=== PATIENT | female | born 1975 | race Caucasian/White ===

== ENCOUNTER 2024-08-10 08:50 | Emergency (ER) | payer OTHER ==
[2024-08-10] MEDS: diphenhydrAMINE 50 MG/ML 1 ML VIAL IVP STA (09:24)
[2024-08-10] MEDS: methylPREDNISolone SOD SUCCI 125 MG/2 ML VIAL IV STA (09:27)
--- NOTE | 2024-08-10 09:31 | ED ---
Skin/Abscess/FB HPI - General Chief complaint: Skin/Abscess/Foreign Body Stated complaint: Allergic reaction Time Seen by Provider: 08/10/24 08:58 Source: patient, RN notes reviewed Mode of arrival: ambulatory Limitations: no limitations - History of Present Illness Initial comments: 49-year-old female presents to the emergency department complaint of allergic reaction. She states that she used a new facial cream last night states that she woke up with swollen right face states that it is very painful, burning sensation. Patient states that she feels like she has some shortness of breath. Patient states that she never had a reaction like this in the past she does have known allergies to iodine and Bactrim. - Related Data Previous Rx's Medication Instructions Recorded Ibuprofen [Motrin] 800 mg PO Q8HR PRN #30 tab 12/06/22 Triamcinolone 0.1% Cream [Kenalog 1 applicatio TOPICAL BID #15 gram 08/10/24 0.1% Cream] methylPREDNISolone Dose Pack 4 mg PO DIRECTED #1 packet 08/10/24 [Medrol Dose Pack] Allergies Allergy/AdvReac Type Severity Reaction Status Date / Time iodine Allergy Unknown Verified 08/10/24 11:14 sulfamethoxazole Allergy Rash/Hives Verified 08/10/24 11:14 [From Bactrim] trimethoprim [From Bactrim] Allergy Rash/Hives Verified 08/10/24 11:14 Review of Systems ROS Statement: Those systems with pertinent positive or pertinent negative responses have been documented in the HPI. ROS Other: All systems not noted in ROS Statement are negative. Past Medical History Past Medical History: No Reported History History of Any Multi-Drug Resistant Organisms: None Reported Past Surgical History: No Surgical Hx Reported Past Psychological History: Depression Smoking Status: Never smoker Past Alcohol Use History: Rare Past Drug Use History: None Reported General Exam Limitations: no limitations General appearance: alert, in no apparent distress Head exam: Present: atraumatic, normocephalic, normal inspection Eye exam: Present: normal appearance, PERRL, EOMI. Absent: scleral icterus, conjunctival injection, periorbital swelling ENT exam: Present: normal exam, normal oropharynx, mucous membranes moist Neck exam: Present: normal inspection. Absent: tenderness, meningismus, lymphadenopathy Respiratory exam: Present: normal lung sounds bilaterally. Absent: respiratory distress, wheezes, rales, rhonchi, stridor Cardiovascular Exam: Present: regular rate, normal rhythm, normal heart sounds. Absent: systolic murmur, diastolic murmur, rubs, gallop, clicks Skin exam: Present: warm, dry, intact, rash (Swelling, erythematous changes throughout the face). Absent: normal color Course Vital Signs 08/10/24 08/10/24 08/10/24 08:55 09:37 11:41 Temperature 98 F 97.7 F 102.4 F H Pulse Rate 77 68 105 H Respiratory 18 26 H 18 Rate Blood Pressure 136/78 140/101 113/69 O2 Sat by Pulse 99 100 96 Oximetry Medical Decision Making - Medical Decision Making Was pt. sent in by a medical professional or institution (DOUG Salas, FINANCIAL SALES ADVISOR, urgent care, hospital, or long-term...) When possible be specific @ -No Did you speak to anyone other than the patient for history (EMS, parent, family, police, friend...)? What history was obtained from this source @ -No Did you review nursing and triage notes (agree or disagree)? Why? @ -I reviewed and agree with nursing and triage notes Were old charts reviewed (outside hosp., previous admission, EMS record, old EKG, old radiological studies, urgent care reports/EKG's, long-term records)? Report findings @ -No old charts were reviewed Differential Diagnosis (chest pain, altered mental status, abdominal pain women, abdominal pain men, vaginal bleeding, weakness, fever, dyspnea, syncope, headache, dizziness, GI bleed, back pain, seizure, CVA, palpatations, mental health, musculoskeletal)? @ -[Contact dermatitis, allergic reaction EKG interpreted by me (3pts min.). @ -None X-rays interpreted by me (1pt min.). @ -None done CT interpreted by me (1pt min.). @ -None done U/S interpreted by me (1pt. min.). @ -None done What testing was considered but not performed or refused? (CT, X-rays, U/S, labs)? Why? @ -None What meds were considered but not given or refused? Why? @ -None Did you discuss the management of the patient with other professionals (pr ofessionals i.e. DOUG Salas, FINANCIAL SALES ADVISOR, lab, RT, psych nurse, hospital social worker, wastewater treatment supervisor, teacher, field crop technical officer, director of casework services)? Give summary @ -No Was smoking cessation discussed for >3mins.? @ -No Was critical care preformed (if so, how long)? @ -No Were there social determinants of health that impacted care today? How? (Homelessness, low income, unemployed, alcoholism, drug addiction, transportation, low edu. Level, literacy, decrease access to med. care, shelter, rehab)? @ -No Was there de-escalation of care discussed even if they declined (Discuss DNR or withdrawal of care, Hospice)? DNR status @ -No What co-morbidities impacted this encounter? (DM, HTN, Smoking, COPD, CAD, Cancer, CVA, ARF, Chemo, Hep., AIDS, mental health diagnosis, sleep apnea, morbid obesity)? @ -None Was patient admitted / discharged? Hospital course, mention meds given and route, prescriptions, significant lab abnormalities, going to OR and other pertinent info. @ -Discharge patient presented for facial rash, burning, shortness of breath. Patient had contact dermatitis, allergic reaction from facial cream. Patient was given Solu-Medrol, Benadryl greatly improved. She did use some Benadryl cream that has helped. She will continue Benadryl and steroid cream return for as discussed. Undiagnosed new problem with uncertain prognosis? @ -No Drug Therapy requiring intensive monitoring for toxicity (Heparin, Nitro, Insul in, Cardizem)? @ -No Were any procedures done? @ -No Diagnosis/symptom? @ -Contact dermatitis, allergic reaction Acute, or Chronic, or Acute on Chronic? @ -Acute Uncomplicated (without systemic symptoms) or Complicated (systemic symptoms)? @ -Uncomplicated Side effects of treatment? @ -No Exacerbation, Progression, or Severe Exacerbation? @ -No Poses a threat to life or bodily function? How? (Chest pain, [place], [place], pneumonia, PE, COPD, DKA, ARF, appy, cholecystitis, CVA, Diverticulitis, Homicidal, Suicidal, threat to staff... and all critical care pts) @ -No Disposition Clinical Impression: Contact dermatitis, Allergic reaction Disposition: HOME SELF-CARE Condition: Stable Instructions (If sedation given, give patient instructions): Contact Dermatitis (ED) Additional Instructions: Please return to the Emergency Department if symptoms worsen or any other concerns. Prescriptions: Triamcinolone 0.1% Cream [Kenalog 0.1% Cream] 1 applicatio TOPICAL BID #15 gram methylPREDNISolone Dose Pack [Medrol Dose Pack] 4 mg PO DIRECTED #1 packet Is patient prescribed a controlled substance at d/c from ED?: No Referrals: Luz Mujica DO [Primary Care Provider] - 1-2 days Time of Disposition: 11:51
[2024-08-10] MEDS: diphenhydrAMINE 2% CREAM 28.4 GM TUBE TOPICAL STA (09:41)
[2024-08-10] MEDS: SODIUM CHLORIDE 0.9% 1,000 ML IV ONE (09:51)
[2024-08-10 11:50] VITALS: RESP 20; TEMP 98
[2024-08-10 12:21] VITALS: BP 131/79; PULSE 71
== END 2024-08-10 12:22 | disposition home or self-care (01) ==
LOC: EC 08:50
DX: L25.9 Unspecified contact dermatitis, unspecified cause (principal); Z88.1 Allergy status to other antibiotic agents; Z88.2 Allergy status to sulfonamides; Z88.8 Allergy status to other drugs, medicaments and biological substances; Z91.041 Radiographic dye allergy status
CPT/HCPCS: 99283; 96374; 96375; 96361; J1200; J2919

== ENCOUNTER 2024-09-13 14:59 | Emergency (ER) | payer OTHER ==
--- NOTE | 2024-09-13 15:31 | ED ---
General Adult HPI - General Stated complaint: THROAT SWELLING Time Seen by Provider: 09/13/24 15:10 Source: patient, RN notes reviewed - History of Present Illness Initial comments: This is a 49-year-old female presenting to the emergency department with referral from urgent care for complaint of sore throat and difficulty swallowing that has been worsening over the past 3-4 days. states that when she woke up this morning she began to experience a severe sore throat that was associated with pain with swallowing. Patient has been experiencing fevers, chills, cough, rhinorrhea. She denies shortness of breath, difficulty breathing, chest pain, heart palpitations, dizziness lightheadedness. Patient states that she has a hi story of a peritonsillar abscess that had to be drained previously. - Related Data Previous Rx's Medication Instructions Recorded Ibuprofen [Motrin] 800 mg PO Q8HR PRN #30 tab 12/06/22 Triamcinolone 0.1% Cream [Kenalog 1 applicatio TOPICAL BID #15 gram 08/10/24 0.1% Cream] methylPREDNISolone Dose Pack 4 mg PO DIRECTED #1 packet 08/10/24 [Medrol Dose Pack] Nirmatrelvir/Ritonavir [Paxlovid 1 each PO DIRECTED #1 each 09/13/24 150-100 mg Dose Pack] predniSONE 50 mg PO DAILY #5 tab 09/13/24 Allergies Allergy/AdvReac Type Severity Reaction Status Date / Time iodine Allergy Unknown Verified 09/13/24 15:33 sulfamethoxazole Allergy Rash/Hives Verified 09/13/24 15:33 [From Bactrim] trimethoprim [From Bactrim] Allergy Rash/Hives Verified 09/13/24 15:33 Review of Systems ROS Statement: Those systems with pertinent positive or pertinent negative responses have been documented in the HPI. ROS Other: All systems not noted in ROS Statement are negative. Past Medical History Past Medical History: No Reported History History of Any Multi-Drug Resistant Organisms: None Reported Past Surgical History: No Surgical Hx Reported Past Psychological History: Depression Smoking Status: Never smoker Past Alcohol Use History: Rare Past Drug Use History: None Reported General Exam - General Exam Comments Initial Comments: Visual Physical Exam Vital signs reviewed General: Well-appearing, nontoxic, no acute distress. Head: Normocephalic, atraumatic Eyes: PERRLA, EOMI ENT: Airway patent Chest: Nonlabored breathing Skin: No visual rash, normal skin tone Neuro: Alert and oriented 3 Musculoskeletal: No gross abnormalities General appearance: alert, in no apparent distress Eye exam: Present: normal appearance, PERRL, EOMI. Absent: scleral icterus, conjunctival injection, periorbital swelling Expanded Throat exam: tonsillar erythema (bilateral), tonsillomegaly (bilateral, more severe left) Neck exam: Present: normal inspection, lymphadenopathy (anterior cervical, tonsillar). Absent: tenderness, meningismus Respiratory exam: Present: normal lung sounds bilaterally. Absent: respiratory distress, wheezes, rales, rhonchi, stridor Cardiovascular Exam: Present: regular rate, normal rhythm, normal heart sounds. Absent: systolic murmur, diastolic murmur, rubs, gallop, clicks GI/Abdominal exam: Present: soft, normal bowel sounds. Absent: distended, tenderness, guarding, rebound, rigid Extremities exam: Present: normal inspection, full ROM, normal capillary refill. Absent: tenderness, pedal edema, joint swelling, calf tenderness Course Vital Signs 09/13/24 09/13/24 09/13/24 15:33 15:52 16:40 Temperature 97.3 F L 99.2 F Pulse Rate 91 84 81 Respiratory 22 16 19 Rate Blood Pressure 142/73 119/89 114/79 O2 Sat by Pulse 100 100 99 Oximetry 09/13/24 16:45 Temperature 103.1 F H Pulse Rate Respiratory Rate Blood Pressure O2 Sat by Pulse Oximetry Medical Decision Making - Medical Decision Making Was pt. sent in by a medical professional or institution (, PA, APPLICATION DEVELOPMENT SPECIALIST, urgent care, hospital, or skilled nursing...) When possible be specific @ -No Did you speak to anyone other than the patient for history (EMS, parent, family, police, friend...)? What history was obtained from this source @ -No Did you review nursing and triage notes (agree or disagree)? Why? @ -I reviewed and agree with nursing and triage notes Were old charts reviewed (outside hosp., previous admission, EMS record, old EKG, old radiological studies, urgent care reports/EKG's, skilled nursing records)? Report findings @ -No old charts were reviewed Differential Diagnosis (chest pain, altered mental status, abdominal pain women, abdominal pain men, vaginal bleeding, weakness, fever, dyspnea, syncope, headache, dizziness, GI bleed, back pain, seizure, CVA, palpatations, mental health, musculoskeletal)? @ -COVID 19, RSV, influenza, pneumonia, acute bronchitis, URI, tonsillar abscess, retropharyngeal abscess, this list is not all inclusive EKG interpreted by me (3pts min.). @ -none X-rays interpreted by me (1pt min.). @ -None done CT interpreted by me (1pt min.). @ -CT soft tissue neck without contrast reveals swelling of the palatine tonsils with no evidence for peritonsillar abscess with mild emphysema changes in the lung apices U/S interpreted by me (1pt. min.). @ -None done What testing was considered but not performed or refused? (CT, X-rays, U/S, labs)? Why? @ -None What meds were considered but not given or refused? Why? @ -None Did you discuss the management of the patient with other professionals (professionals i.e. , PA, APPLICATION DEVELOPMENT SPECIALIST, lab, RT, psych nurse, licensed master social worker, clinical counselor, teacher, corporate trust officer, sample case porter)? Give summary @ -No Was smoking cessation discussed for >3mins.? @ -No Was critical care preformed (if so, how long)? @ -No Were there social determinants of health that impacted care today? How? (Homelessness, low income, unemployed, alcoholism, drug addiction, transportation, low edu. Level, literacy, decrease access to med. care, nursing home, rehab)? @ -No Was there de-escalation of care discussed even if they declined (Discuss DNR or withdrawal of care, Hospice)? DNR status @ -No What co-morbidities impacted this encounter? (DM, HTN, Smoking, COPD, CAD, Cancer, CVA, ARF, Chemo, Hep., AIDS, mental health diagnosis, sleep apnea, morbid obesity)? @ -None Was patient admitted / discharged? Hospital course, mention meds given and route, prescriptions, significant lab abnormalities, going to OR and other pertinent info. @ -Charge. 49-year-old female with sore throat and tonsillar swelling. On my evaluation the patient is noted to have pain of throat with communication. 7 to have anterior cervical and tonsillar lymphadenopathy. Patient has bilateral tonsillar erythema and enlargement with left more severe than right. There is no evidence of airway compromise. Vitals are stable. There is no stridorous breathing patient is not tripoding and no evidence of muffled voice. Patient is provided with dose of pain medications and steroids and will undergo laboratory evaluation, viral swabs, CT imaging. She is agree with this plan. On reevalu ation, patient states that steroid the pain medication have helped to alleviate some of her symptoms. Recheck of temperature reveals that she is febrile over 103. At this time patient provided with oral dose of Tylenol and Motrin. lab results unremarkable. Ct no acute process or conern for peritonsillar abscess/fluid collection. Patient has tested positive for COVID. Patient will be provided with outpatient prescription for Paxlovid and steroids with concern for tonsillar swelling. She is recommend to continue Tylenol Motrin as needed. Discussed with Dr. Morales Undiagnosed new problem with uncertain prognosis? @ -No Drug Therapy requiring intensive monitoring for toxicity (Heparin, Nitro, Insulin, Cardizem)? @ -No Were any procedures done? @ -No Diagnosis/symptom? @ -COVID19 Acute, or Chronic, or Acute on Chronic? @ -acute Uncomplicated (without systemic symptoms) or Complicated (systemic symptoms)? @ -uncomplicated Side effects of treatment? @ -No Exacerbation, Progression, or Severe Exacerbation? @ -No Poses a threat to life or bodily function? How? (Chest pain, [place], [place], pneumonia, PE, COPD, DKA, ARF, appy, cholecystitis, CVA, Diverticulitis, Homicidal, Suicidal, threat to staff... and all critical care pts) @ -No - Lab Data Result diagrams: 09/13/24 16:53 09/13/24 16:53 Lab Results 09/13/24 09/13/24 09/13/24 Range/Units 16:53 16:53 16:53 WBC 7.0 (3.8-10.6) k/uL RBC 4.48 (3.80-5.40) m/uL Hgb 13.2 (11.4-16.0) gm/dL Hct 40.2 (34.0-46.0) % MCV 89.7 (80.0-100.0) fL MCH 29.5 (25.0-35.0) pg MCHC 32.9 (31.0-37.0) g/dL RDW 13.7 (11.5-15.5) % Plt Count 319 (150-450) k/uL MPV 7.1 Neutrophils % 86 % Lymphocytes % 5 % Monocytes % 6 % Eosinophils % 1 % Basophils % 0 % Neutrophils # 6.1 (1.3-7.7) k/uL Lymphocytes # 0.4 L (1.0-4.8) k/uL Monocytes # 0.4 (0-1.0) k/uL Eosinophils # 0.1 (0-0.7) k/uL Basophils # 0.0 (0-0.2) k/uL Sodium (137-145) mmol/L Potassium (3.5-5.1) mmol/L Chloride (98-107) mmol/L Carbon Dioxide (22-30) mmol/L Anion Gap mmol/L BUN (7-17) mg/dL Creatinine (0.52-1.04) mg/dL Est GFR (CKD-EPI)AfAm (>60 ml/min/1.73 sqM) Est GFR (CKD-EPI)NonAf (>60 ml/min/1.73 sqM) Glucose (74-99) mg/dL Plasma Lactic Acid Josh (0.7-2.0) mmol/L Calcium (8.4-10.2) mg/dL Total Bilirubin (0.2-1.3) mg/dL AST (14-36) U/L ALT (4-34) U/L Alkaline Phosphatase (38-126) U/L Total Protein (6.3-8.2) g/dL Albumin (3.5-5.0) g/dL Influenza Type A (PCR) Not Detected (Not Detectd) Influenza Type B (PCR) Not Detected (Not Detectd) RSV (PCR) Not Detected (Not Detectd) SARS-CoV-2 (PCR) Detected A (Not Detectd) Group A Strep (PCR) NOT DETECTED (Not Detectd) 09/13/24 09/13/24 Range/Units 16:53 16:53 WBC (3.8-10.6) k/uL RBC (3.80-5.40) m/uL Hgb (11.4-16.0) gm/dL Hct (34.0-46.0) % MCV (80.0-100.0) fL MCH (25.0-35.0) pg MCHC (31.0-37.0) g/dL RDW (11.5-15.5) % Plt Count (150-450) k/uL MPV Neutrophils % % Lymphocytes % % Monocytes % % Eosinophils % % Basophils % % Neutrophils # (1.3-7.7) k/uL Lymphocytes # (1.0-4.8) k/uL Monocytes # (0-1.0) k/uL Eosinophils # (0-0.7) k/uL Basophils # (0-0.2) k/uL Sodium 136 L (137-145) mmol/L Potassium 3.8 (3.5-5.1) mmol/L Chloride 104 (98-107) mmol/L Carbon Dioxide 21 L (22-30) mmol/L Anion Gap 11 mmol/L BUN 11 (7-17) mg/dL Creatinine 0.62 (0.52-1.04) mg/dL Est GFR (CKD-EPI)AfAm >90 (>60 ml/min/1.73 sqM) Est GFR (CKD-EPI)NonAf >90 (>60 ml/min/1.73 sqM) Glucose 81 (74-99) mg/dL Plasma Lactic Acid Josh 1.7 (0.7-2.0) mmol/L Calcium 8.9 (8.4-10.2) mg/dL Total Bilirubin 0.4 (0.2-1.3) mg/dL AST 20 (14-36) U/L ALT 14 (4-34) U/L Alkaline Phosphatase 99 (38-126) U/L Total Protein 7.6 (6.3-8.2) g/dL Albumin 4.3 (3.5-5.0) g/dL Influenza Type A (PCR) (Not Detectd) Influenza Type B (PCR) (Not Detectd) RSV (PCR) (Not Detectd) SARS-CoV-2 (PCR) (Not Detectd) Group A Strep (PCR) (Not Detectd) Disposition Clinical Impression: COVID-19, Pharyngitis Disposition: HOME SELF-CARE Condition: Good Instructions (If sedation given, give patient instructions): COVID-19 (Coronavirus Disease 2019) (ED) Additional Instructions: Please return to the Emergency Department if symptoms worsen or any other concerns. Complete full course of antivirals as prescribed and steroids. Continue Tylenol and Motrin as needed for symptomatic relief and fevers. Increase hydration. Prescriptions: Nirmatrelvir/Ritonavir [Paxlovid 150-100 mg Dose Pack] 1 each PO DIRECTED #1 each predniSONE 50 mg PO DAILY #5 tab Is patient prescribed a controlled substance at d/c from ED?: No Referrals: Luz Mujica DO [Primary Care Provider] - 1-2 days Time of Disposition: 18:09
[2024-09-13] MEDS: DEXAMETHASONE SOD PHOSPHATE 4 MG/ML 1 ML VIAL IVP STA (16:57)
[2024-09-13] MEDS: HYDROmorphone 0.5 MG/0.5 ML SYRINGE IVP STA (16:58)
[2024-09-13 17:05] LABS: Basophils % (A) 0 %; Eosinophils # (A) 0.1 k/uL (0-0.7); Eosinophils % (A) 1 %; HCT 40.2 % (34.0-46.0); HGB 13.2 gm/dL (11.4-16.0); Lymphocytes # (A) 0.4 k/uL (1.0-4.8); Lymphocytes % (A) 5 %; MCH 29.5 pg (25.0-35.0); MCHC 32.9 g/dL (31.0-37.0); MCV 89.7 fL (80.0-100.0); Mean Platelet Volume 7.1; Monocytes # (A) 0.4 k/uL (0-1.0); Monocytes % (A) 6 %; Neutrophils # (A) 6.1 k/uL (1.3-7.7); Neutrophils % (A) 86 %; Platelet Count 319 k/uL (150-450); RBC 4.48 m/uL (3.80-5.40); RDW 13.7 % (11.5-15.5)
[2024-09-13 17:10] VITALS: BP 114/79; PULSE 81; RESP 19
[2024-09-13 17:15] LABS: ALT 14 U/L (4-34); AST 20 U/L (14-36); African American GFR (CKD) >90 (>60 ml/min/1.73 sqM); Albumin 4.3 g/dL (3.5-5.0); Alkaline Phosphatase 99 U/L (38-126); Anion Gap 11 mmol/L; Blood Urea Nitrogen 11 mg/dL (7-17); Calcium 8.9 mg/dL (8.4-10.2); Carbon Dioxide 21 mmol/L (22-30); Chloride 104 mmol/L (98-107); Glucose 81 mg/dL (74-99); Non-African American GFR(CKD) >90 (>60 ml/min/1.73 sqM); Potassium 3.8 mmol/L (3.5-5.1); Sodium 136 mmol/L (137-145); Total Bilirubin 0.4 mg/dL (0.2-1.3); Total Protein 7.6 g/dL (6.3-8.2)
[2024-09-13 17:16] VITALS: TEMP 103.1
[2024-09-13] MEDS: ACETAMINOPHEN TAB 500 MG TAB PO STA (17:21)
[2024-09-13] MEDS: IBUPROFEN 800 MG TAB PO STA (17:21)
--- NOTE | 2024-09-13 17:50 | CT ---
EXAMINATION TYPE: CT soft tissue neck wo con DATE OF EXAM: 09/13/2024 5:35 PM COMPARISON: None. CLINICAL INDICATION: Female, 49 years old with history of pain, left tonsillar swelling, hx of absces s, Pt c/o chills, sweats, earache, and sore throat. Sent from [facility] to r/o peritonsillar abscess. TECHNIQUE: Standard enhanced CT of the neck. Axial sections with coronal and sagittal reformats were obtained. Contrast used: mL of , (None if empty) Oral contrast used: (None if empty) CT DLP: 248.1 mGycm, Automated exposure control for dose reduction was used. FINDINGS: Brain: Visualized portions are grossly unremarkable. Orbits: Unremarkable Sinuses: Grossly unremarkable. Spaces of the neck: Thickening of the palatine tonsils. No organizing fluid collection. Musculoskeletal: No acute osseous pathology. Lymph nodes: Multiple nonenlarged lymph nodes are seen along both anterior chains of the neck. Vascular structures: Visualized major arteries are patent without evidence of aneurysm. Thoracic Inlet/airway: Airway is patent. The lung apices are clear. Paraseptal and centrilobular emph ysema changes. Soft tissues/Thyroid: Thyroid and remainder of the soft tissues are unremarkable. Other: none. IMPRESSION: 1. Limit evaluation without contrast. 2. Swelling of the palatine tonsils. No evidence for peritonsillar abscess. 3. Mild emphysema changes in the lung apices. [facility], , 09/13/2024 5:48 PM
== END 2024-09-13 19:00 | disposition home or self-care (01) ==
LOC: EC 14:59
DX: U07.1 COVID-19 (principal); J02.9 Acute pharyngitis, unspecified; Z91.041 Radiographic dye allergy status; Z88.2 Allergy status to sulfonamides; Z88.1 Allergy status to other antibiotic agents
CPT/HCPCS: 36415; 87651; 80053; 83605; 85025; 87636; 70490; 99284; 96374; 96375; J1100; J1171

== ENCOUNTER 2025-05-19 13:03 | Emergency (ER) | payer OTHER ==
[2025-05-19 13:07] VITALS: BP 129/78; PULSE 53; RESP 20; TEMP 97.8
--- NOTE | 2025-05-19 13:36 | ED ---
Burn/Smoke HPI - General Chief complaint: Burn/Smoke Inhalation Stated complaint: [facility]-Burn on abd Time Seen by Provider: 05/19/25 13:10 Source: patient, RN notes reviewed Mode of arrival: ambulatory Limitations: no limitations - History of Present Illness Initial comments: 50-year-old female presented to the ER for evaluation of an abdominal burn. 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 She states she reached up above her head to grab a piece of foam that was being cut by 165 degree F wire when the cup piece of foam accidentally fell and landed on her abdomen. She does report her shirt lifted as well and foam was directly on her skin for a couple of seconds. She is currently reporting a burning discomfort to area where foam landed. She denies any other injuries or complaints at this time. - Related Data Previous Rx's Medication Instructions Recorded Ibuprofen [Motrin] 800 mg PO Q8HR PRN #30 tab 12/06/22 Triamcinolone 0.1% Cream [Kenalog 1 applicatio TOPICAL BID #15 gram 08/10/24 0.1% Cream] methylPREDNISolone Dose Pack 4 mg PO DIRECTED #1 packet 08/10/24 [Medrol Dose Pack] Nirmatrelvir/Ritonavir [Paxlovid 1 each PO DIRECTED #1 each 09/13/24 150-100 mg Dose Pack] predniSONE 50 mg PO DAILY #5 tab 09/13/24 Bacitracin/Polymyx Oint 1 applic TOPICAL TID #10 gm 05/19/25 [Polysporin Oint] Allergies Allergy/AdvReac Type Severity Reaction Status Date / Time iodine Allergy Unknown Verified 05/19/25 13:07 sulfamethoxazole Allergy Rash/Hives Verified 05/19/25 13:07 [From Bactrim] trimethoprim [From Bactrim] Allergy Rash/Hives Verified 05/19/25 13:07 Review of Systems ROS Statement: Those systems with pertinent positive or pertinent negative responses have been documented in the HPI. ROS Other: All systems not noted in ROS Statement are negative. Past Medical History Past Medical History: No Reported History History of Any Multi-Drug Resistant Organisms: None Reported Past Surgical History: No Surgical Hx Reported Additional Past Surgical History / Comment(s): D&C Past Psychological History: Depression Smoking Status: Never smoker Past Alcohol Use History: Rare Past Drug Use History: None Reported General Exam Limitations: no limitations General appearance: alert, in no apparent distress Respiratory exam: Present: normal lung sounds bilaterally. Absent: respiratory distress, wheezes, rales, rhonchi, stridor Cardiovascular Exam: Present: regular rate, normal rhythm, normal heart sounds. Absent: systolic murmur, diastolic murmur, rubs, gallop, clicks GI/Abdominal exam: Present: soft, normal bowel sounds. Absent: distended, tenderness, guarding, rebound, rigid Neurological exam: Present: alert, oriented X3, CN II-XII intact Skin exam: Present: warm, dry, intact, normal color, other (There is no erythema, blistering or skin abnormality noted to abdomen). Absent: rash Course Vital Signs 05/19/25 13:04 Temperature 97.8 F Pulse Rate 53 L Respiratory 20 Rate Blood Pressure 129/78 O2 Sat by Pulse 100 Oximetry Medical Decision Making - Medical Decision Making Was pt. sent in by a medical professional or institution (, PA, MASTER PLUMBER, urgent care, hospital, or [place] [facility] facility...) When possible be specific @ -No Did you speak to anyone other than the patient for history (EMS, parent, family, police, friend...)? What history was obtained from this source @ -No Did you review nursing and triage notes (agree or disagree)? Why? @ -I reviewed and agree with nursing and triage notes Were old charts reviewed (outside hosp., previous admission, EMS record, old EKG, old radiological studies, urgent care reports/EKG's, [place] [facility] facility records)? Report findings @ -No old charts were reviewed Differential Diagnosis (chest pain, altered mental status, abdominal pain women, abdominal pain men, vaginal bleeding, weakness, fever, dyspnea, syncope, headache, dizziness, GI bleed, back pain, seizure, CVA, palpatations, mental health, musculoskeletal)? @ -Burn, shingles, cellulitis... This list is not meant to be all-inclusive EKG interpreted by me (3pts min.). @ -None done X-rays interpreted by me (1pt min.). @ -None done CT interpreted by me (1pt min.). @ -None done U/S interpreted by me (1pt. min.). @ -None done What testing was considered but not performed or refused? (CT, X-rays, U/S, labs)? Why? @ -None What meds were considered but not given or refused? Why? @ -None Did you discuss the management of the patient with other professionals (professionals i.e. , PA, MASTER PLUMBER, lab, RT, psych nurse, social scientist, change management manager, teacher, financial aid officer, director of casework department)? Give summary @ -No Was smoking cessation discussed for >3mins.? @ -No Was critical care preformed (if so, how long)? @ -No Were there social determinants of health that impacted care today? How? (Homelessness, low income, unemployed, alcoholism, drug addiction, tra nsportation, low edu. Level, literacy, decrease access to med. care, fpc, rehab)? @ -No Was there de-escalation of care discussed even if they declined (Discuss DNR or withdrawal of care, Hospice)? DNR status @ -No What co-morbidities impacted this encounter? (DM, HTN, Smoking, COPD, CAD, Cancer, CVA, ARF, Chemo, Hep., AIDS, mental health diagnosis, sleep apnea, morbid obesity)? @ -None Was patient admitted / discharged? Hospital course, mention meds given and route, prescriptions, significant lab abnormalities, going to OR and other pertinent info. @ -Discharge. 50-year-old female presented to ER for evaluation of abdominal burn. Vital signs stable. Patient in no signs of distress nontoxic-appearing. Exam benign there is no abdominal tenderness or skin abnormality noted. Patient will be provided an ice pack and ibuprofen for pain control. Bacitracin prescribed for infection prophylaxis. Patient discharged stable condition advised follow-up closely with PCP. Return parameters discussed. Patient verbally expressed understanding agreement care plan. Case discussed with ED attending, Dr. Sepulveda.] Undiagnosed new problem with uncertain prognosis? @ -No Drug Therapy requiring intensive monitoring for toxicity (Heparin, Nitro, Insulin, Cardizem)? @ -No Were any procedures done? @ -No Diagnosis/symptom? @ -Burn Acute, or Chronic, or Acute on Chronic? @ -Acute Uncomplicated (without systemic symptoms) or Complicated (systemic symptoms)? @ -Uncomplicated Side effects of treatment? @ -No Exacerbation, Progression, or Severe Exacerbation? @ -No Poses a threat to life or bodily function? How? (Chest pain, [place], CA, pneumonia, PE, COPD, DKA, ARF, appy, cholecystitis, CVA, Diverticulitis, Homicidal, Suicidal, threat to staff... and all critical care pts) @ -No Disposition Clinical Impression: Burn Disposition: HOME SELF-CARE Condition: Stable Instructions (If sedation given, give patient instructions): Superficial Burn (DC) Additional Instructions: You may take [id number] ibuprofen and Tylenol for pain control. Apply topical antibiotic ointment as needed. Follow-up with PCP return to the ER for any new or worse concerns. Prescriptions: Bacitracin/Polymyx Oint [Polysporin Oint] 1 applic TOPICAL TID #10 gm Is patient prescribed a controlled substance at d/c from ED?: No Referrals: Luz Mujica DO [Primary Care Provider] - 1-2 days Time of Disposition: 13:57
[2025-05-19] MEDS: IBUPROFEN 800 MG TAB PO STA (13:52)
== END 2025-05-19 14:34 | disposition home or self-care (01) ==
LOC: EC 13:03
DX: T21.02XA Burn of unspecified degree of abdominal wall, initial encounter (principal); Z88.1 Allergy status to other antibiotic agents; Z88.2 Allergy status to sulfonamides; Z91.041 Radiographic dye allergy status; W86.8XXA Exposure to other electric current, initial encounter; Y99.0 Civilian activity done for income or pay
CPT/HCPCS: 99283